=== PATIENT | male | born 1955 | race African-American/Black ===

== ENCOUNTER 2021-09-26 10:50 | Inpatient (IN) ==
[2021-09-26] MEDS ORDERED: ONDANSETRON 4 MG/2 ML VIAL ONE (11:02)
[2021-09-26] MEDS ORDERED: ASPIRIN 325 MG TABLET PO STA (11:03)
[2021-09-26] MEDS ORDERED: amLODIPine 5 MG TABLET PO STA (11:03)
[2021-09-26] MEDS ORDERED: ONDANSETRON 4 MG/2 ML VIAL IV STA (11:06)
[2021-09-26 11:13] LABS: Basophils % 0.3 % (0.0-0.8); Hematocrit 37.9 VOL% (42.0-52.0); Hemoglobin 12.8 GM/DL (14.0-18.0); Immature Granulocytes % 0.4 %; Immature Granulocytes Absolute 0.04 #; Lymphocytes # 1.2 10*3/uL (1.4-4.0); Lymphocytes % 10.6 % (21.2-54.2); Mean Corpuscular HGB Conc 33.8 GM/DL (32-36); Mean Corpuscular Volume 90.2 FL (87-102); Mean Platelet Volume 10.6 FL (9.6-12.0); Neutrophils % 85.7 % (38.7-73.9); Platelet Count 297 T/CUMM (130-400); Red Cell Distribution Width 12.7 % (9.3-17.3); White Blood Count 11.4 T/CUMM (4-12)
[2021-09-26 11:33] LABS: Albumin 3.8 G/DL (3.4-5.0); Bilirubin,Total 2.4 MG/DL (0.20-1.00); Calcium 9.5 MG/DL (8.5-10.1); Osmolality,Calculated 276.8 MOS/KG (273-304); Potassium 4.1 MMOL/L (3.5-5.1); Total Protein 8.3 G/DL (6.4-8.2)
[2021-09-26] MEDS ORDERED: hydrALAZINE 20 MG/1 ML VIAL IV STA (13:22)
[2021-09-26] MEDS ORDERED: DEXTROSE 50% 25 GM/50 ML VIAL IV PRN (14:16)
[2021-09-26] MEDS ORDERED: DOCUSATE SODIUM 100 MG CAPSULE PO PRN (14:16)
[2021-09-26] MEDS ORDERED: ACETAMINOPHEN 325 MG TABLET PO PRN (14:16)
[2021-09-26] MEDS ORDERED: ONDANSETRON 4 MG/2 ML VIAL IV PRN (14:16)
[2021-09-26] MEDS ORDERED: MORPHINE 2 MG/1 ML SYRINGE IV PRN (14:16)
[2021-09-26] MEDS ORDERED: GLUCAGON 1 MG VIAL IM PRN (14:16)
[2021-09-26] MEDS ORDERED: hydrALAZINE 20 MG/1 ML VIAL IV PRN (14:18)
[2021-09-26] MEDS ORDERED: FUROSEMIDE 20 MG TABLET PO SCH (14:30)
[2021-09-26] MEDS: LOSARTAN 25 MG TABLET PO SCH ×2 (14:57→20:32)
[2021-09-26 14:58] LABS: Risk Ratio 3.42; VLDL Cholesterol 18.2 MG/DL
[2021-09-26] MEDS: ENOXAPARIN 40 MG/0.4 ML SYRINGE SUBCUT SCH (14:58)
[2021-09-26] MEDS: CHLORTHALIDONE 25 MG TABLET PO SCH (15:19)
[2021-09-27 06:55] LABS: Basophils % 0.3 % (0.0-0.8); Eosinophils # 0.1 10*3/uL (0.0-0.87); Eosinophils % 0.7 % (0.00-10.9); Hematocrit 36.7 VOL% (42.0-52.0); Hemoglobin 12.4 GM/DL (14.0-18.0); Immature Granulocytes % 0.3 %; Immature Granulocytes Absolute 0.02 #; Lymphocytes # 1.4 10*3/uL (1.4-4.0); Lymphocytes % 21.2 % (21.2-54.2); Mean Corpuscular HGB Conc 33.8 GM/DL (32-36); Mean Corpuscular Volume 90.6 FL (87-102); Mean Platelet Volume 10.4 FL (9.6-12.0); Neutrophils % 70.5 % (38.7-73.9); Platelet Count 268 T/CUMM (130-400); Red Blood Count 4.05 MC/CUMM (3.8-5.5); Red Cell Distribution Width 12.4 % (9.3-17.3); White Blood Count 6.8 T/CUMM (4-12)
[2021-09-27 07:11] LABS: Calcium 9.3 MG/DL (8.5-10.1); Osmolality,Calculated 272.1 MOS/KG (273-304); Potassium 3.5 MMOL/L (3.5-5.1)
[2021-09-27] MEDS: CHLORTHALIDONE 25 MG TABLET PO SCH (08:03)
[2021-09-27] MEDS: LOSARTAN 25 MG TABLET PO SCH (08:04)
[2021-09-27] MEDS ORDERED: amLODIPine 10 MG TABLET PO SCH (09:00)
[2021-09-27] MEDS ORDERED: ROSUVASTATIN 20 MG TABLET PO SCH (09:30)
[2021-09-27 12:20] VITALS: BP 188/75
[2021-09-27] MEDS: ENOXAPARIN 40 MG/0.4 ML SYRINGE SUBCUT SCH (14:28)
== END 2021-09-27 14:40 | disposition home or self-care (01) | DRG 305 ==
LOC: N.ED 10:50 → N.EDINP 14:16 → SUATTDRO 14:16 → N.EDINP 17:10 → N.TELES 17:18
PROVIDERS: ADMIT Internal Medicine; ATTEND Internal Medicine